=== PATIENT | male | born 1985 ===

== ENCOUNTER → 2017-06-24 18:07 | Outpatient (CLI) | payer OTHER ==
[~2017-06-24] VITALS: Ht 152.4 cm; Wt 95.3 kg
== END | disposition home or self-care (01) ==
LOC: PPHC 18:07
DX: L73.8 Other specified follicular disorders (principal)

== ENCOUNTER 2021-02-13 15:03 | Outpatient (CLI) | payer OTHER | END 2021-02-13 15:05 | disposition home or self-care (01) | LOC: LAB 15:03 | PROVIDERS: ATTEND Obstetrics & Gynecology | DX: Z20.818 Contact with and (suspected) exposure to other bacterial communicable diseases (principal) ==